=== PATIENT | female | born 1990 | race Caucasian/White ===

== ENCOUNTER 2024-05-27 02:39 | Day surgery (SDC) | payer OTHER ==
[~2024-05-27] VITALS: Ht 165.1 cm; Wt 71.3 kg
[2024-05-27] VITALS (194 sets, daily range): BP systolic 88–148; BP diastolic 45–90
[~2024-05-27 02:39] MED LIST: SODIUM CHLORIDE 0.9% 1,000 ML IV PRN
--- NOTE | 2024-05-27 07:00 | NUR ---
Arrival & Pre-treatment Patient arrived to the ANR suite, identification and demographics confirmed. Patient to room 7, AAO, ambulatory, vitals obtained, ID/allergy/fall bands placed, changed into hospital gown, JAYNE hose, and non-slip socks. Procedure and timeline explained for treatment and discharge. All questions answered and the patient presents no concerns at this time. V/S assessed, call light is near. Dr. Mcgraw telephoned with patient intake information including usage, dose, last dose/time taken and initial vital signs. Patient history and allergies reviewed with MD. Orders received for 10mg PO Valium and 0.1mg PO Clonidine now. Will reassess per protocol and update MD with assessment and vitals.
[2024-05-27] MEDS ORDERED: PANTOPRAZOLE SODIUM Sesquihydr 40 MG/TAB PO PRN (07:30)
[2024-05-27] MEDS ORDERED: LACTATED RINGER'S 1,000 ML IV PRN ×2 (07:30→09:45)
[2024-05-27] MEDS ORDERED: SCOPOLAMINE 1.5 MG DIS TD PRN (07:30)
[2024-05-27] MEDS ORDERED: diazePAM 5 MG/TAB PO PRN ×2 (07:30→08:30)
[2024-05-27] MEDS ORDERED: CYANOCOBALAMIN 500 MCG/TAB ( B12) PO PRN (07:30)
[2024-05-27] MEDS ORDERED: ALBUTEROL SULFATE 2.5 MG VIAL IN PRN (07:30)
[2024-05-27] MEDS ORDERED: FAMOTIDINE 20 MG/TAB PO PRN (07:30)
[2024-05-27] MEDS ORDERED: cloNIDine HCL 0.1 MG/TAB PO PRN (07:30)
--- NOTE | 2024-05-27 07:30 | NUR ---
Patient medicated per MD orders. In addition to Clonidine and Valium, patient received 1000 mcg B12 PO, 20 mg Pepcid PO, and Scopolamine TD patch. Medication indication and education provided prior to adminstration.
[2024-05-27] MEDS ORDERED: ASCORBIC ACID 4,000 MG in SODIUM CHLORIDE 0.9% 1,000 ML IV SCH (08:00)
[2024-05-27 08:19] LABS: BASO% 0.5 % (0-3); EOS% 5.5 % (0-8); HEMATOCRIT 37.4 % (37.0-47.0); LYMPH% 39.7 % (15-41); MEAN CELL VOLUME 92.6 fL CALC (80.0-100.0); MEAN CORPUSCULAR HGB 29.7 pG CALC (26.0-32.0); MEAN CORPUSCULAR HGB CONC 32.1 g/dL CAL (32.0-36.0); MONO% 9.5 % (2-13); NEUT# 1.94 thou/uL (2.00-7.15); NEUT% 44.8 % (42-76); RED BLOOD COUNT 4.04 mill/uL (4.20-5.60); RED CELL DISTRI WIDTH 12.8 % (11.5-15.5)
[2024-05-27 08:51] LABS: ALBUMIN 3.9 g/dL (3.2-5.0); BILIRUBIN, TOTAL 0.9 mg/dL (0.02-1.3); CREATININE 0.7 mg/dL (0.5-1.0); POTASSIUM 4.1 mmol/l (3.5-5.1); TOTAL PROTEIN 6.3 g/dL (6.3-8.2)
--- NOTE | 2024-05-27 09:00 | NUR ---
Patients vital signs within pre-treatment parameters for 1.5 hour recheck. No indication for additional Valium or Clonidine as patient is resting comfortably and vital signs are within range.
--- NOTE | 2024-05-27 09:00 | NUR ---
PATIENT BELONGINGS ASSESSED; NO CONTRABAND NOTED. JEWELERY AND PHONE PLACED IN JACKET POCKET. ALL BELONGINGS PLACED IN LOCKER # ORANGE 1.
[2024-05-27] MEDS ORDERED: PHENYLEPHRINE HCL 10 MG in SODIUM CHLORIDE 0.9% 250 ML IV PRN (09:05)
[2024-05-27] MEDS ORDERED: diazePAM 5 MG/TAB VT PRN (09:45)
[2024-05-27] MEDS ORDERED: OCTREOTIDE ACETATE 100 MCG/VIAL SDV SC PRN (09:45)
[2024-05-27] MEDS ORDERED: cloNIDine HCL 0.1 MG/TAB VT PRN (09:45)
[2024-05-27] MEDS ORDERED: ONDANSETRON HCl 4 MG/2 ML SDV IV PRN ×3 (09:45→19:00)
[2024-05-27] MEDS ORDERED: STERILE WATER FOR IRRIGATION 1,000 ML BTL IR PRN (09:45)
[2024-05-27] MEDS ORDERED: LIDOCAINE HCL 1% (10MG/ML) 100 MG/10 ML MDV VT PRN ×2 (09:45)
[2024-05-27] MEDS ORDERED: SUCCINYLCHOLINE CHLORIDE 20 MG/ML 10ML VIAL IV PRN (09:45)
[2024-05-27] MEDS ORDERED: DiphenhydrAMINE HCL 50 MG/ML SDV IV PRN (09:45)
[2024-05-27] MEDS ORDERED: PROPOFOL 100 ML IV PRN (09:45)
[2024-05-27] MEDS ORDERED: MAGNESIUM SULFATE HEPTAHYDRATE 100 ML IV PRN (09:45)
[2024-05-27] MEDS ORDERED: cloNIDine HYDROCHLORIDE 100 MCG/ML 10 ML INJ IV PRN (09:45)
[2024-05-27] MEDS ORDERED: THIAMINE HCL 100 MG/ML 2ML VIAL IV PRN (09:45)
[2024-05-27] MEDS ORDERED: MIDAZOLAM HCL 2 MG/2 ML VIAL IV PRN ×3 (09:45→15:55)
[2024-05-27] MEDS ORDERED: PROPOFOL 10 MG/ML 100ML VIAL IV PRN (09:45)
[2024-05-27] MEDS ORDERED: ROCURONIUM BROMIDE 10 MG/ML 5ML VIAL IV PRN (09:45)
[2024-05-27] MEDS ORDERED: POTASSIUM CHLORIDE 20 MEQ/100 ML BAG IV PRN (09:45)
[2024-05-27] MEDS ORDERED: LIDOCAINE HCL 1% (10MG/ML) 100 MG/10 ML MDV IV PRN (09:45)
[2024-05-27] MEDS ORDERED: NALTREXONE HCL 50 MG/TAB VT PRN (09:45)
[2024-05-27] MEDS ORDERED: SODIUM CHLORIDE 0.9% 1,000 ML IV PRN ×2 (09:50→19:00)
--- NOTE | 2024-05-27 10:30 | NUR ---
Patient resting comfortably in bed. Easily aroused, maintains focus, and drifts back to sleep. No signs of active withdrawal or distress noted at this time. Continuous SPO2, rhythm, and respiratory monitoring initiated. IVF @ 250 mL/HR, room air, VSS.
--- NOTE | 2024-05-27 11:30 | NUR ---
Induction Note Time out performed at 1130. Patient placed on monitors, Amarilys hugger, bilateral wrist restraints applied for ET tube protection. Versed 5mg given IV push at 1147. Tourniquet applied to RT arm Lidocaine 100mg given at 1148 IV push followed by Rocoronium 10mg at 1149 IV push and held for 90 seconds. Propofol bolus of 130mg given at 1151 IV push. Succinylcholine 80mg given IV push at 1152. Smooth intubation with 7.5 ETT. Positive CO2. Positive Auscultation for air exchange. Patient placed on ventilator for spontaneous ventilation. Placed on Propofol IV drip at 1153. OG inserted. Positive air on auscultation. Positive gastric content. Stomach washed at this time.
--- NOTE | 2024-05-27 12:05 | NUR ---
OG close note Stomach washed at this time. Naltrexone 50 mg with Clonidine 0.2 mg via OG tube. OG will be clamped for 45 minutES.
[2024-05-27] MEDS ORDERED: DEXMEDETOMIDINE HCL IN SODIUM 100 ML IV PRN (12:35)
--- NOTE | 2024-05-27 12:50 | NUR ---
OG open note OG open at this time. Gastric content draining into drainage bag. OG to drain for 45 minutes. Propofol will be titrated down based on patient.
--- NOTE | 2024-05-27 13:35 | NUR ---
OG close note Stomach washed at this time. Naltrexone 50 mg with Clonidine 0.2 mg via OG tube. OG will be clamped for 45 minutes.
[2024-05-27] MEDS ORDERED: CLONIDINE0.1 MG PO (13:44)
[2024-05-27] MEDS ORDERED: NALTREXONE50 MG PO (13:44)
[2024-05-27] MEDS ORDERED: KLONOPIN2 MG PO (13:44)
--- NOTE | 2024-05-27 15:05 | NUR ---
OG close note Stomach washed at this time. Naltrexone 50 mg with Clonidine 0.2 mg via OG tube. OG will be clamped for 45 minutes.
--- NOTE | 2024-05-27 17:46 | NUR ---
Extubation note Closing medications given Benadryl 50mg IV push, Decadron 10mg IV push,Magnesium 4 grams IV, Zofran 8mg IV push, Octreotide 100mcg SC. Stomach washed out prior to extubation. Suctioned gastric content. OG removed. Patient extubated. Propofol Discontinued. Wrist restraints removed. Amarilys hugger Removed. See ANR Moderate sedate recovery record for further notes and assessment.
--- NOTE | 2024-05-27 17:52 | NUR ---
Patient's support person (SP) telephoned by JACK Sung with update. All questions answered, no concerns presented at this time. SP agreeable to POC.
--- NOTE | 2024-05-27 18:08 | NUR ---
Transfer Note Patient transferred to medical-surgical unit private room. Report given to primary nurse at bedside. Head to toe assessment, treatment, medications, I/O, IV access reviewed with primary nurse. All questions answered. IVF to continue at 100 ml/hr, NC @ 2L, no adventitious breath sounds. Safety precautions in place, bed locked and in lowest position, call light in reach. Handoff of care complete at this time.
[2024-05-27] MEDS ORDERED: ACETAMINOPHEN 1,000 MG/100 ML VIAL IV PRN (19:00)
[2024-05-27] MEDS ORDERED: KETOROLAC TROMETHAMINE 30 MG/ML SDV IV PRN (19:00)
[2024-05-27] MEDS ORDERED: PROMETHAZINE HCL 25 MG in SODIUM CHLORIDE 0.9% 50 ML IV PRN (19:00)
[2024-05-27] MEDS ORDERED: PROMETHAZINE HCL 12.5 MG in SODIUM CHLORIDE 0.9% 50 ML IV PRN (19:00)
[2024-05-27] MEDS ORDERED: ACETAMINOPHEN 500 MG TAB PO PRN (19:00)
[2024-05-27] MEDS ORDERED: HALOPERIDOL LACTATE 5 MG/ML SDV IV PRN (19:00)
--- NOTE | 2024-05-27 20:00 | NUR ---
RECEVIED REPORT FROM ANR NURSE. PT NOTED SITTING UP ON BSC WITH BRAKE OPERATOR ASSISTING PT. PT PRESENTS DROWSY BUT IS A/OX1, ABLE TO FOLLOW COMMANDS AND KEEPS EYES OPEN WHEN INSTRUCTED. PT HAD TWO LARGE BOWEL MOVEMENTS. FORMED AND BROWN. PT STATED THEY WERE "CONSTIPATED BEFORE PROCEDURE" STAFF ASSISTED PT WITH WIPING AND PIVOTING BACK INTO BED. NC REAPPLIED, IV SITES APPEAR HEALTHY AND INTACT WITH IVF RUNNING PER EMAR. PT DENIES ANY N/V/P. VSS. NO S/S OF DISTRESS. BED ALARM ON AND SAFETY PRECAUTIONS IN PLACE. SITTER AT DOORWAY.
[2024-05-27] MEDS ORDERED: PATIENT' OWN MED CONTROLLED 1 EA DOSE IV PRN (21:00)
--- NOTE | 2024-05-27 21:45 | NUR ---
PT C/O RESTLESS LEGS, RN ADMINISTERED MEDICATION PER EMAR. PT TOLERATED WELL. PT LAYING IN BED SUPINE, NC IN PLACE. DENIES ANY N/V/P. BED ALARM ON AND SAFETY PRECAUTIONS IN PLACE. IVF RUNNING PER EMAR. SITTER AT DOORWAY.
[2024-05-27] MEDS ORDERED: cloNIDine HCL 0.1 MG/TAB PO SCH (23:00)
[2024-05-27] MEDS ORDERED: clonazePAM 1 MG/TAB PO PRN (23:00)
--- NOTE | 2024-05-28 | NUR ---
SCHEDULED MEDS ADMINSITERED PER EMAR, PT TOLERATED WELL DENYING ANY N/V AT THIS TIME. PT DID C/O PAIN IN ABD, STATES CRAMPING FROM HAVING BM. PRN PAIN MEDICATION WAS ADMINSITERED PER EMAR. PT LAYING IN BED ON LT SIDE, NC IN PLACE. IVF RUNNING PER EMAR. PT IS A/OX3, ABLE TO FOLLOW COMMANDS AND MAKE NEEDS KNOWN. PT IS RESTING COMFORTABLY AT THIS TIME. VSS. NO S/S OF DISTRESS. BED ALARM ON AND SAFETY PRECAUTIONS IN PLACE. SITTER AT DOORWAY.
--- NOTE | 2024-05-28 02:00 | NUR ---
PT WOKE UP AND ASKED METALWORKING SPECIALIST FOR "SLEEP MEDICATION" WHEN COMMERCIAL PAINTER ENTERED ROOM, PT HAS ALREADY FALLEN BACK ASLEEP. LAYING IN BED ON RT SIDE, IVF RUNNING PER EMAR. NO S/S OF DISTRESS. BED ALARM ON AND SAFETY PRECAUTIONS IN PLACE.
[2024-05-28 03:49] VITALS: BP 101/57
[2024-05-28] MEDS ORDERED: clonazePAM 1 MG/TAB PO PRN ×2 (04:00→08:00)
[2024-05-28] MEDS ORDERED: NALTREXONE HCL 50 MG/TAB PO SCH ×2 (04:00→10:00)
[2024-05-28] MEDS ORDERED: cloNIDine HCL 0.1 MG/TAB PO PRN (04:00)
--- NOTE | 2024-05-28 04:03 | NUR ---
SCHEDULED MEDS ADMINISTERED PER EMAR. PT TOLERATED WELL. PT LT HAND IV NOTED TO BE PULLED OUT, CATHETER WAS INTACT. PT STATES "I PULLED IT OUT BECAUSE IT WAS HURTING" IV WAS SALINE LOCKED AND INFORMED PT THEY NEED TO LET STAFF KNOW OF ANY DISCOMFORT WITH IV'S AND TO NOT PULL THEM OUT. PT DENIED ANY N/V/P AT THIS TIME BUT DID REQUEST "SOMETHING TO PUT ME TO SLEEP" INFORMED PT THAT KLONOPIN AND CLONODINE WILL HELP WITH RESTLESSNESS. PT STATED THEY WANTED "SOMETHING STRONGER TO PUT ME OUT" INFOMRED PT THEY WILL NOT RECEIVE MEDICATION TO "PUT THEM OUT" AT THEY ARE IN RECOVERY PROCESS AND WE NEED TO BE ABLE TO WAKE THEM UP THROUGHOUT FOR SCHEDULED MEDS. PT THEN STATED "THEY TOLD ME I WOULD SLEEP THE WHOLE TIME" INFORMED PT THEY WERE PUT TO SLEEP FOR PROCEDURE ITSELF BUT THAT WAKING UP DURING RECOVERY PORTION IS NORMAL AND APART OF PROCESS. PT MADE CLEAR SHE WAS UNHAPPY WITH POC. PT WAS OFFERED EYE MASK TO HELP ENCOURAGE REST. VSS. NO S/S OF DISTRESS. BED ALARM ON AND SAFETY PRECAUTIONS IN PLACE. SITTER AT DOORWAY.
[2024-05-28 05:08] LABS: BASO% 0.2 % (0-3); HEMATOCRIT 37.3 % (37.0-47.0); HEMOGLOBIN 12.4 g/dl (12.0-16.0); IMMATURE GRANULOCYTES 0.2 % (0.0-5.0); LYMPH% 8.1 % (15-41); MEAN CELL VOLUME 91.2 fL CALC (80.0-100.0); MEAN CORPUSCULAR HGB 30.3 pG CALC (26.0-32.0); MEAN CORPUSCULAR HGB CONC 33.2 g/dL CAL (32.0-36.0); MONO% 2.3 % (2-13); NEUT# 4.96 thou/uL (2.00-7.15); NEUT% 89.2 % (42-76); RED BLOOD COUNT 4.09 mill/uL (4.20-5.60); RED CELL DISTRI WIDTH 12.7 % (11.5-15.5)
[2024-05-28 05:16] LABS: ALBUMIN 3.9 g/dL (3.2-5.0); BILIRUBIN, TOTAL 1.1 mg/dL (0.02-1.3); CREATININE 0.7 mg/dL (0.5-1.0); MAGNESIUM 2.1 mg/dL (1.6-2.3); POTASSIUM 3.6 mmol/l (3.5-5.1); TOTAL PROTEIN 6.3 g/dL (6.3-8.2)
--- NOTE | 2024-05-28 07:58 | NUR ---
patient is resting in bed; room air; breathing unlabored and even; no s.s of distress at this time NS @100, iv site clean and intact with no issues; encouraged to eat breakfast; labs and status of patient was called to provider no new order at this time; call light within reach; bed in lowest postion;saftey measures in place; bed in lowest postion; bed alarm, activated;no complaints; patient is laying in supine postion with isak hugger attached to bed
[2024-05-28] MEDS ORDERED: ACETAMINOPHEN 325 MG/TAB PO SCH (08:00)
[2024-05-28] MEDS ORDERED: cloNIDine HCL 0.1 MG/TAB PO SCH ×2 (08:00→10:00)
[2024-05-28] MEDS ORDERED: PANTOPRAZOLE SODIUM Sesquihydr 40 MG/TAB PO SCH (08:00)
[2024-05-28] MEDS ORDERED: Cholecalciferol 2,000 UNIT/TAB PO PRN (09:00)
[2024-05-28] MEDS ORDERED: POTASSIUM CHLORIDE 20 MEQ/TAB PO SCH (09:00)
[2024-05-28] MEDS ORDERED: ACETAMINOPHEN 500 MG TAB PO PRN (09:00)
[2024-05-28] MEDS ORDERED: MAGNESIUM OXIDE 400 MG/TAB PO PRN (09:00)
--- NOTE | 2024-05-28 09:30 | NUR ---
provider talked to patient,verbal order for clondine 0.1 and naltrexone 25, awaiting pharmacu
[2024-05-28 09:40] VITALS: BP 116/65
--- NOTE | 2024-05-28 12:57 | NUR ---
patient a/o x3; in the shower at this time, no compaints; wanted to know discharge information, discussed POC and discharge time, saftey measures in place
--- NOTE | 2024-05-28 14:26 | NUR ---
IV site discontinued, cath intact. No edema , no redness, voices no discomfort.. Discharge instructions given. Patient verbalizes understanding of same. Discharged in stable condition via Ambulatory to Home with family. All belongings sent with pt.
== END 2024-05-28 14:00 | disposition home or self-care (01) | DRG 897 ==
LOC: MS2 02:39 → ANR 02:39
PROVIDERS: ATTEND Anesthesiology
DX: F11.20 Opioid dependence, uncomplicated (principal)
CPT/HCPCS: J1100; J1200; J2354; J2405; J2704; J3411; J3475; J3480; J3490